=== PATIENT | female | born 1940 | race Caucasian/White ===

== ENCOUNTER → 2016-06-12 | Outpatient (CLI) | payer OTHER ==
--- NOTE | ~2016-06-12 | 24HR ---
[facility] [place] [address] 24 HR ELECTROCARDIOGRAM REPORT Name: XI FRANK STEPHANIE Room #: REG CL [facility].#: [id number] Admission: 06/12/16 Attend Phys: Severiano Villa MD Discharge: Date of : 36 Date of Service: 06/14/1638 Report #: [id number] THIS REPORT FOR: //name// CC: Neelamsteffanie Villa DATE OF SERVICE: 06/12/2016 ANALYSIS DATE: 06/14/2016. ORDERING PHYSICIAN: Severiano Villa MD [facility]. INDICATION: Atrial fibrillation. MONITORING DURATION: 23 hours 59 minutes. Average heart rate is 74 beats per minute. Minimum heart rate is 45 beats minute, maximum heart rate is 114 beats per minute. The patient's underlying rhythm is atrial fibrillation. The longest cardiac pause was 1.9 seconds at 11:06 p.m. There were rare PVCs and no other arrhythmias. A diary was returned without any symptoms recorded. In conclusion, Holter monitor demonstrates atrial fibrillation with an average heart rate of 74 beats per minute. There were no cardiac pauses. By: [id number] Paolo Wiseman MD, FACC /nt
== END ==
LOC: CV 06:22
DX: I48.91 Unspecified atrial fibrillation (principal)